=== PATIENT | female | born 1990 | race Caucasian/White ===

== ENCOUNTER 2018-04-06 13:36 | Emergency (ER) | payer SELFPAY, OTHER | END 2018-04-06 14:41 | disposition home or self-care (01) | LOC: ER 13:36 ==

== ENCOUNTER 2018-10-16 10:30 | Outpatient (RCR) | payer OTHER ==
[~2018-10-16 10:30] MED LIST: HYDR12.56 PO
== END 2018-11-05 09:18 | disposition home or self-care (01) ==
PROVIDERS: ATTEND Nurse Practitioner Primary Care
DX: M54.41 Lumbago with sciatica, right side (principal)

== ENCOUNTER 2021-07-27 09:50 | Emergency (ER) | payer OTHER ==
[~2021-07-27] VITALS: Ht 175.2 cm; Wt 155.0 kg
[2021-07-27 10:17] VITALS: BP 204/132
--- NOTE | 2021-07-27 10:40 | ED General ---
General Chief Complaint: Cardiac/General Problems Stated Complaint: HIGH BP 165/124 Nursing Triage Note: This patient arrived to the ED via ambulation and states that her blood pressure is high and she is experiencing a headache. The patient stated that she started hctz 12.5 on Saturday. Source of Information: Patient Exam Limitations: No Limitations History of Present Illness Date Seen by Provider: July 27, 2021 Time Seen by Provider: 09:53 Initial Comments 31-year-old female with recently diagnosed hypertension and diabetes coming in due to elevated blood pressure. She is in the clinic on Saturday and her blood pressure was in the 160s. She was started on 12-1/2 mg of hydrochlorothiazide as well as metformin. She has been taking her blood pressure twice a day as instructed. Her blood pressure today was 160/120 she came to the ER. She has not taken her blood pressure medicine as of yet today. Denies any chest pain, shortness of breath, abdominal pain, nausea, vomiting, diarrhea, weakness, numbness, severe headache, vision changes, rash, or any other concerns. She does have chronic headaches for years, and she says she has a mild one right now which is normal for her. Allergies and Home Medications Allergies Coded Allergies: No Known Drug Allergies (Unverified , 07/31/11) Patient Home Medication List Home Medication List Reviewed: Yes Hydrochlorothiazide (Hydrochlorothiazide) 12.5 Mg Tablet, 12.5 MG PO DAILY, (Reported) Entered as Reported by: CUBA GARCIA on 04/06/18 4368 Review of Systems Review of Systems Constitutional: No chills, No fever EENTM: No blurred vision Respiratory: no symptoms reported Cardiovascular: no symptoms reported Gastrointestinal: no symptoms reported Genitourinary: no symptoms reported Musculoskeletal: no symptoms reported Skin: no symptoms reported Psychiatric/Neurological: No Symptoms Reported Hematologic/Lymphatic: No Symptoms Reported Immunological/Allergic: no symptoms reported All Other Systems Reviewed Negative Unless Noted: Yes Past [id number] Hx Patient Social History Tobacco Use?: No Seasonal Allergies Seasonal Allergies: No Past Medical History Surgeries: No Cardiac: Yes Hypertension Musculoskeletal: No Endocrine: No HEENT: No Physical Exam Vital Signs Vital Signs - First Documented 07/27/21 10:17 Temp 35.8 Pulse 94 Resp 17 B/P (MAP) 204/132 (156) Pulse Ox 100 O2 Delivery Room Air Capillary Refill : Height, Weight, BMI Height: 5'9.00" Weight: 305lbs. oz. 138.252408ds; 50.00 BMI Method:Stated General Appearance: No Apparent Distress, WD/WN Eyes: Bilateral Eye Normal Inspection, Bilateral Eye PERRL, Bilateral Eye EOMI HEENT: PERRL/EOMI, TMs Normal, Normal ENT Inspection, Pharynx Normal Neck: Full Range of Motion, Normal Inspection, Non Tender, Supple Respiratory: Chest Non Tender, Lungs Clear, Normal Breath Sounds, No Accessory Muscle Use, No Respiratory Distress Cardiovascular: Regular Rate, Rhythm, No Edema, Normal Peripheral Pulses Gastrointestinal: Normal Bowel Sounds, Non Tender, Soft; No Distended, No Gua rding Back: Normal Inspection, No CVA Tenderness, No Vertebral Tenderness Extremity: Normal Capillary Refill, Normal Inspection, Normal Range of Motion, Non Tender, No Calf Tenderness, No Pedal Edema Neurologic/Psychiatric: Alert, Oriented x3, No Motor/Sensory Deficits, Normal Mood/Affect, resin coater II-XII Norm as Tested, Other (Normal [id number], normal gait, normal peripheral vision) Skin: Normal Color, Warm/Dry Lymphatic: No Adenopathy Progress/Results/Core Measures Suspected Sepsis SIRS Temperature: Pulse: 94 Respiratory Rate: 17 Blood Pressure 204 /132 Mean: 156 Results/Orders Vital Signs/I&O 07/27/21 10:17 Temp 35.8 Pulse 94 Resp 17 B/P (MAP) 204/132 (156) Pulse Ox 100 O2 Delivery Room Air Capillary Refill : Blood Pressure Mean: 156 Progress Note : Progress Note 31-year-old female with above history coming in due to asymptomatic hypertension. ABCs were intact and vitals are stable on presentation although she is hypertensive. I suspect she has been chronically hypertensive for years, I do not want to lower her acutely. I will increase her dose of her hydrochlorothiazide since she is on the lowest dose. I instructed her to take her blood pressure, and if it drops too much then she can go back to the lower dose of the hydrochlorothiazide. She unfortunately does have larger arms as well, and even her large blood pressure cuff was too small for her. I suspect this is increasing her numbers somewhat. I do believe she is stable for discharge with outpatient follow-up. She was sent home with strict return precautions Departure Impression Primary Impression: Hypertension Qualified Codes: I10 - Essential (primary) hypertension Disposition: HOME, SELF-CARE Condition: Stable Departure-Patient Inst. Decision time for Depature: 10:39 Referrals: SIGIFREDO MOLINA DO (PCP/Family) Primary Care Physician Patient Instructions: High Blood Pressure ED Add. Discharge Instructions: I recommend doubling your dose of the hydrochlorothiazide. Take your blood pressure 1 to 2 hours after taking the medication to see what your true numbers are. If you have severe chest pain, severe shortness of breath, weakness on one side of your body, complete numbness on one side of your body, vision loss, worst headache of her life then I would want you to come back to the ER. Otherwise follow-up with your regular doctor as scheduled. Work/School Note: Work Release Form Date Seen in the Emergency Department: July 27, 2021 Return to Work: July 28, 2021 Restrictions: No Restrictions BEAU KEYES MD July 27, 2021 10:40
== END 2021-07-27 10:45 | disposition home or self-care (01) ==
LOC: EDUNIT# 09:50 → ER 09:51
DX: I10 Essential (primary) hypertension (principal); E11.9 Type 2 diabetes mellitus without complications; Z79.84 Long term (current) use of oral hypoglycemic drugs; Z79.899 Other long term (current) drug therapy
CPT/HCPCS: 99281

== ENCOUNTER → 2022-04-19 | Outpatient (CLI) | payer OTHER | LOC: CARD 11:43 | PROVIDERS: ATTEND Pediatrics | DX: R00.0 Tachycardia, unspecified (principal) | CPT/HCPCS: 93246 ==